=== PATIENT | female | born 1970 | race Caucasian/White ===

== ENCOUNTER 2018-06-14 13:53 | Emergency (ER) | payer OTHER ==
[~2018-06-14] VITALS: Ht 165.1 cm; Wt 81.6 kg
[2018-06-14 14:00] VITALS: Ht 165.1 cm; Wt 81.6 kg
[2018-06-14 15:13] LABS: BASOPHIL % 1.3 % (0-2); PLATELET COUNT 329 x10^3mcL (130-400); RED CELL DISTRIBUTION WIDTH 13.6 % (11.5-14.5)
[2018-06-14 15:17] LABS: CALCIUM 9.2 mg/dL (8.5-10.1); CARBON DIOXIDE 26.8 mmol/L (21-32); CHLORIDE SERUM 99 mmol/L (98-107); GFR1 > 60 mL/min; GLUCOSE SERUM 116 mg/dL (74-106); POTASSIUM SERUM 3.9 mmol/L (3.5-5.1); SODIUM SERUM 133 mmol/L (136-145)
[2018-06-14 15:22] LABS: ALBUMIN 3.7 g/dL (3.4-5.0); ALKALINE PHOSPHATASE 84 U/L (46-116); ALT/SGPT 27 U/L (14-59); AST/SGOT 15 U/L (15-37); BILIRUBIN TOTAL 0.2 mg/dL (0.20-1.00); TOTAL PROTEIN, SERUM 7.8 g/dL (6.4-8.2)
[2018-06-14 16:19] VITALS: BP 134/91
[2018-06-14 17:29] LABS: FREE T4 0.89 ng/dL (0.76-1.46); LIPASE 83 IU/L (73-393)
== END 2018-06-14 17:50 | disposition left against medical advice (07) ==
LOC: ED 13:53
PROVIDERS: Emergency Medicine
DX: R07.89 Other chest pain (principal); F11.23 Opioid dependence with withdrawal; E78.00 Pure hypercholesterolemia, unspecified; J45.909 Unspecified asthma, uncomplicated; J02.9 Acute pharyngitis, unspecified; R42 Dizziness and giddiness; R11.0 Nausea; F31.9 Bipolar disorder, unspecified; M79.10 Myalgia, unspecified site; Z88.0 Allergy status to penicillin; Z88.8 Allergy status to other drugs, medicaments and biological substances; Z88.1 Allergy status to other antibiotic agents; Z88.5 Allergy status to narcotic agent
CPT/HCPCS: 36415; 83880; 84439; 85378; G0480; J2270